=== PATIENT | female | born 1985 | race Caucasian/White ===

== ENCOUNTER 2017-06-09 14:05 | Emergency (ER) | payer OTHER ==
[~2017-06-09] VITALS: Ht 160 cm; Wt 91.6 kg
[~2017-06-09 14:05] MED LIST: ABILIFY5 MG PO; ACETAMINOPHEN-H1 TA2 PO; AMBIEN10 MG PO; ANAPROX DS550 MG PO; AUGMENTIN 875 M1 TAB PO; B12,B-12,B 12500 MC1 PO; BACTRIM DS 8001 TA1 PO; BIAXIN500 MG PO; BUSPAR15 MG PO; CHOLESTROL PO; CIPROFLOXACIN500 MG PO; CLARITIN10 MG PO; COMPAZINE10 MG PO; DICLOFENAC POTA50 MG PO; FLEXERIL5 MG PO; FLOMAX0.4 MG PO; FLONASE ALLERG9.9 ML NS; FOLIC ACID0.4 MG PO; GEMFIBROZIL600 MG PO; HYDROCODONE BIT1 T11 PO; KEFLEX500 MG PO; LAMICTAL100 MG PO; LAMICTAL200 MG PO; LEVAQUIN750 M1 PO; LIPITOR20 MG PO; LIPITOR40 MG PO; MACROBID100 M1 PO; MACRODANTIN100 MG PO; MEDROL DOSEPAK4 MG PO; MOTRIN800 MG PO; NAPROSYN250 MG PO; PREDNICOT20 MG PO; PRILOSEC40 MG PO; PROZAC10 MG; PROZAC20 MG PO; RESCUE INHALER INH; ROBAXIN500 MG PO; ROBAXIN750 MG PO; SAPHRIS10 MG; SAPHRIS10 MG SL; SEPTRA DS 800 M1 TAB PO; TOPAMAX100 MG PO; TOPAMAX200 MG PO; TRAMADOL HCL50 MG PO; VALIUM10 MG PO; VICO75300 PO; VICODIN 5/500 505 MG PO; VICODIN 500 MG-1 TAB PO; VICODIN ES 7501 TA1 PO; ZANAFLEX4 MG PO; ZITHROMAX Z PA250 MG PO; ZITHROMAX250 MG PO; ZOFRAN ODT4 MG SL; ZOFRAN4 MG PO; Zofran4 MG PO; [UNRECOGNIZED DRUG - OTHER]
[2017-06-09 14:59] LABS: BASO % 0.4 % (0.0-1.0); EOS # 0.1 10*3/uL (0.0-0.4); EOS % 0.9 % (1.0-4.0); HEMOGLOBIN 14.4 g/dl (12.0-16.0); LYMPH % 31.2 % (27.0-41.0); MEAN CELL VOLUME 96.7 fl (81.0-99.0); MEAN CORPUSCULAR HGB CONC 35.1 g/dl (33.0-37.0); MEAN PLATELET VOLUME 10.1 fl (9.6-12.3); MONO # 0.8 10*3/uL (0.1-1.0); MONO % 7.9 % (3.0-9.0); NEUT # 5.8 10*3/uL (2.3-7.9); NEUT % 59.4 % (47.0-73.0); PLATELET COUNT AUTOMATED 241 10*3/uL (130-400); RED BLOOD COUNT 4.24 10*6/uL (4.10-5.10); RED CELL DISTRI WIDTH 12.3 % (0-14.5); WHITE BLOOD COUNT 9.8 10*3/uL (4.8-10.8)
[2017-06-09 15:15] LABS: ALBUMIN 3.3 gm/dl (3.1-4.5); ALKALINE PHOSPHATASE 49 U/L (45-117); BUN 8 mg/dl (7-24); CHLORIDE 113 mmol/L (98-107); CREATININE 0.97 mg/dL (0.55-1.02); LIPASE 195 U/L (73-393); POTASSIUM 4.1 mmol/L (3.5-5.1); SGOT/AST 8 IU/L (3-35); SGPT/ALT 16 U/L (12-78); SODIUM 141 mmol/L (136-145); TOTAL PROTEIN 7.1 gm/dL (6.4-8.2)
[2017-06-09 15:15] LABS: BILIRUBIN NEGATIVE (NEGATIVE); BLOOD NEGATIVE (NEGATIVE); CLARITY TURBID (CLEAR); COLOR YELLOW (YELLOW); GLUCOSE NEGATIVE (NEGATIVE); KETONE NEGATIVE (NEGATIVE); LEUKO ESTERASE TRACE (NEGATIVE); NITRITE NEGATIVE (NEGATIVE); PH 7.5 (5.0-9.0); SPECIFIC GRAVITY 1.015 (1.005-1.030)
[2017-06-09 15:20] VITALS: BP 107/64
[2017-06-09 15:55] LABS: RBC 0-2 rbc/hpf (0-2)
[2017-06-09 15:56] LABS: BACTERIA 4+; EPITHELIAL CELLS 20-25; WBC 0-2 wbc/hpf (0-5)
[2017-06-09] MEDS ORDERED: CIPRO500 MG PO (16:09)
[2017-06-09] MEDS ORDERED: Zofran4 MG PO (16:10)
== END 2017-06-09 16:33 | disposition home or self-care (01) ==
LOC: ED 14:05
PROVIDERS: Nurse Practitioner Family
DX: N39.0 Urinary tract infection, site not specified (principal); A08.4 Viral intestinal infection, unspecified; K21.9 Gastro-esophageal reflux disease without esophagitis; E78.5 Hyperlipidemia, unspecified; E11.9 Type 2 diabetes mellitus without complications; F17.200 Nicotine dependence, unspecified, uncomplicated; J45.909 Unspecified asthma, uncomplicated; Z79.899 Other long term (current) drug therapy

== ENCOUNTER 2017-10-27 12:46 | Emergency (ER) | payer OTHER ==
[~2017-10-27 12:46] MED LIST changes: +CIPRO500 MG PO
[2017-10-27 12:49] VITALS: BP 130/78
[2017-10-27 13:10] LABS: BASO # 0.1 10*3/uL (0.0-0.1); BASO % 0.7 % (0.0-1.0); EOS # 0.1 10*3/uL (0.0-0.4); EOS % 1.5 % (1.0-4.0); HEMATOCRIT 39.4 % (37.0-47.0); HEMOGLOBIN 13.8 g/dl (12.0-16.0); LYMPH # 2.3 10*3/uL (1.3-4.4); LYMPH % 27.5 % (27.0-41.0); MEAN CELL VOLUME 95.2 fl (81.0-99.0); MEAN CORPUSCULAR HGB 33.3 pg (27.0-31.0); MEAN PLATELET VOLUME 9.4 fl (9.6-12.3); MONO # 0.6 10*3/uL (0.1-1.0); MONO % 6.7 % (3.0-9.0); NEUT # 5.2 10*3/uL (2.3-7.9); NEUT % 63.4 % (47.0-73.0); PLATELET COUNT AUTOMATED 261 10*3/uL (130-400); RED BLOOD COUNT 4.14 10*6/uL (4.10-5.10); RED CELL DISTRI WIDTH 12.3 % (0-14.5); WHITE BLOOD COUNT 8.2 10*3/uL (4.8-10.8)
[2017-10-27 13:25] LABS: ALBUMIN 3.2 gm/dl (3.1-4.5); ALKALINE PHOSPHATASE 59 U/L (45-117); BUN 11 mg/dl (7-24); CHLORIDE 111 mmol/L (98-107); CREATININE 0.99 mg/dL (0.55-1.02); LIPASE 164 U/L (73-393); POTASSIUM 3.6 mmol/L (3.5-5.1); SGOT/AST 10 IU/L (3-35); SGPT/ALT 20 U/L (12-78); SODIUM 145 mmol/L (136-145); TOTAL PROTEIN 6.9 gm/dL (6.4-8.2)
[2017-10-27] MEDS ORDERED: ZOFRAN4 MG PO (13:40)
[2017-10-27] MEDS ORDERED: CARAFATE1 G1 PO (13:40)
[2017-10-27] MEDS ORDERED: SUNMARK OMEPRAZ20 M1 PO (13:40)
[2017-10-27] MEDS ORDERED: ZANTAC 150150 MG PO (13:40)
[2017-10-27 13:58] LABS: BILIRUBIN NEGATIVE (NEGATIVE); BLOOD 1+ (NEGATIVE); CLARITY CLOUDY (CLEAR); COLOR YELLOW (YELLOW); GLUCOSE NEGATIVE (NEGATIVE); KETONE NEGATIVE (NEGATIVE); LEUKO ESTERASE NEGATIVE (NEGATIVE); NITRITE NEGATIVE (NEGATIVE); SPECIFIC GRAVITY <= 1.005 (1.005-1.030); UROBILINOGEN 0.2 E.U./dl (0.2-1.0)
[2017-10-27 14:25] LABS: BACTERIA TRACE; RBC 0-2 rbc/hpf (0-2); WBC 0-2 wbc/hpf (0-5)
== END 2017-10-27 14:38 | disposition home or self-care (01) ==
LOC: ED 12:46
PROVIDERS: Nurse Practitioner Family
DX: K29.00 Acute gastritis without bleeding (principal); R03.0 Elevated blood-pressure reading, without diagnosis of hypertension; F17.200 Nicotine dependence, unspecified, uncomplicated; Z98.51 Tubal ligation status; Z98.890 Other specified postprocedural states; Z79.899 Other long term (current) drug therapy

== ENCOUNTER 2018-09-12 15:28 | Emergency (ER) | payer OTHER ==
[~2018-09-12] VITALS: Ht 160 cm; Wt 88.5 kg
[~2018-09-12 15:28] MED LIST changes: +CARAFATE1 G1 PO; +SUNMARK OMEPRAZ20 M1 PO; +ZANTAC 150150 MG PO
[2018-09-12 15:31] VITALS: BP 124/61
[2018-09-12] MEDS ORDERED: NAPROSYN500 MG PO (15:48)
== END 2018-09-12 17:35 | disposition home or self-care (01) ==
LOC: ED 15:28
DX: M25.421 Effusion, right elbow (principal); R03.0 Elevated blood-pressure reading, without diagnosis of hypertension; J45.909 Unspecified asthma, uncomplicated; K21.9 Gastro-esophageal reflux disease without esophagitis; E11.9 Type 2 diabetes mellitus without complications; E78.1 Pure hyperglyceridemia; E66.9 Obesity, unspecified; F17.200 Nicotine dependence, unspecified, uncomplicated; Z79.899 Other long term (current) drug therapy; S50.01XA Contusion of right elbow, initial encounter; Z87.442 Personal history of urinary calculi; Z68.30 Body mass index [BMI] 30.0-30.9, adult; Z98.51 Tubal ligation status; W01.0XXA Fall on same level from slipping, tripping and stumbling without subsequent striking against object, initial encounter; Y93.89 Activity, other specified; Y92.89 Other specified places as the place of occurrence of the external cause; Y99.8 Other external cause status

== ENCOUNTER 2019-03-31 12:31 | Emergency (ER) | payer OTHER ==
[~2019-03-31 12:31] MED LIST changes: +NAPROSYN500 MG PO
[2019-03-31 12:37] VITALS: BP 98/48
== END 2019-03-31 14:35 | disposition home or self-care (01) ==
LOC: ED 12:31
DX: M54.5 Low back pain (principal); R51 Headache; M53.3 Sacrococcygeal disorders, not elsewhere classified; J45.909 Unspecified asthma, uncomplicated; K21.9 Gastro-esophageal reflux disease without esophagitis; E78.5 Hyperlipidemia, unspecified; E66.9 Obesity, unspecified; F17.200 Nicotine dependence, unspecified, uncomplicated; Z68.39 Body mass index [BMI] 39.0-39.9, adult; Z87.440 Personal history of urinary (tract) infections; Z79.899 Other long term (current) drug therapy; Y08.89XA Assault by other specified means, initial encounter; W18.39XA Other fall on same level, initial encounter; Y93.89 Activity, other specified; Y92.89 Other specified places as the place of occurrence of the external cause; Y99.8 Other external cause status

== ENCOUNTER 2022-05-05 18:40 | Emergency (ER) | payer OTHER ==
[2022-05-05 18:50] VITALS: BP 134/93
[2022-05-05 19:50] LABS: BASO # 0.1 10*3/uL (0.0-0.1); BASO % 0.4 % (0.0-1.0); EOS # 0.1 10*3/uL (0.0-0.4); EOS % 0.9 % (1.0-4.0); HEMATOCRIT 39.2 % (37.0-47.0); LYMPH # 2.4 10*3/uL (1.3-4.4); LYMPH % 18.1 % (27.0-41.0); MEAN CELL VOLUME 95.1 fl (81.0-99.0); MEAN CORPUSCULAR HGB CONC 34.7 g/dl (33.0-37.0); MEAN PLATELET VOLUME 9.7 fl (9.6-12.3); MONO % 7.8 % (3.0-9.0); NEUT # 9.5 10*3/uL (2.3-7.9); NEUT % 72.6 % (47.0-73.0); PLATELET COUNT AUTOMATED 296 10*3/uL (130-400); RED BLOOD COUNT 4.12 10*6/uL (4.10-5.10); RED CELL DISTRI WIDTH 12.4 % (0-14.5); WHITE BLOOD COUNT 13.1 10*3/uL (4.8-10.8)
[2022-05-05 20:11] LABS: ALKALINE PHOSPHATASE 63 U/L (45-117); BUN 13 mg/dl (7-24); CHLORIDE 113 mmol/L (98-107); POTASSIUM 3.5 mmol/L (3.5-5.1); SGOT/AST 15 IU/L (3-35); SGPT/ALT 16 U/L (12-78); SODIUM 139 mmol/L (136-145); TOTAL PROTEIN 7.1 gm/dL (6.4-8.2)
== END 2022-05-05 22:19 | disposition home or self-care (01) ==
LOC: ED 18:40
PROVIDERS: Emergency Medicine
DX: R07.81 Pleurodynia (principal); E11.9 Type 2 diabetes mellitus without complications; J45.909 Unspecified asthma, uncomplicated; Z79.899 Other long term (current) drug therapy; Z98.51 Tubal ligation status; Z98.890 Other specified postprocedural states; Z87.891 Personal history of nicotine dependence; Z87.442 Personal history of urinary calculi

== ENCOUNTER 2022-09-03 09:31 | Emergency (ER) | payer OTHER ==
[~2022-09-03] VITALS: Ht 157.4 cm; Wt 79.4 kg
[2022-09-03 12:13] VITALS: BP 144/79
[2022-09-03 13:26] LABS: BASO # 0.1 10*3/uL (0.0-0.1); BASO % 0.4 % (0.0-1.0); EOS # 0.1 10*3/uL (0.0-0.4); EOS % 0.5 % (1.0-4.0); HEMATOCRIT 39.3 % (37.0-47.0); LYMPH # 2.5 10*3/uL (1.3-4.4); MEAN CELL VOLUME 94.9 fl (81.0-99.0); MEAN CORPUSCULAR HGB 33.8 pg (27.0-31.0); MEAN CORPUSCULAR HGB CONC 35.6 g/dl (33.0-37.0); MONO # 0.9 10*3/uL (0.1-1.0); MONO % 7.4 % (3.0-9.0); NEUT # 9.1 10*3/uL (2.3-7.9); NEUT % 71.4 % (47.0-73.0); PLATELET COUNT AUTOMATED 333 10*3/uL (130-400); RED BLOOD COUNT 4.14 10*6/uL (4.10-5.10); RED CELL DISTRI WIDTH 11.9 % (0-14.5); WHITE BLOOD COUNT 12.7 10*3/uL (4.8-10.8)
== END 2022-09-03 13:57 | disposition home or self-care (01) ==
LOC: ED 09:31
PROVIDERS: Physician Assistant
DX: N93.8 Other specified abnormal uterine and vaginal bleeding (principal); R07.81 Pleurodynia; Z88.8 Allergy status to other drugs, medicaments and biological substances; Z79.899 Other long term (current) drug therapy; Z98.51 Tubal ligation status; Z98.890 Other specified postprocedural states; Z87.891 Personal history of nicotine dependence; W18.39XA Other fall on same level, initial encounter; Y93.89 Activity, other specified; Y92.89 Other specified places as the place of occurrence of the external cause; Y99.8 Other external cause status